=== PATIENT | male | born 1985 | race Two or more races ===

== ENCOUNTER 2022-11-11 16:54 | Inpatient (IN) | payer OTHER ==
[2022-11-11 16:59] VITALS: BMI 42.5
[2022-11-11] MEDS ORDERED: LIDOCAINE HCL 2% (20ML MULTI-DOSE VIAL) ONE (17:57)
[2022-11-11 19:55] LABS: BASO % 0.3 % (0-2.0); EOS % 0.2 % (0-4.5); HEMATOCRIT 46.8 % (35.4-49); LYMPH % 8.6 % (8-40); MCH 27.9 pg (25.7-33.7); MCHC 32.2 g/dl (32.0-35.9); MEAN CELL VOLUME 86.8 fl (80-96); MEAN PLT VOLUME 8.3 fl (7.5-11.1); MONO % 6.4 % (3.8-10.2); NEUT % 84.5 % (42.8-82.8); PLATELET COUNT 407 10^3/uL (134-434); RBC 5.39 M/mm3 (4.00-5.60); RDW 13.8 % (11.9-15.9); WHITE BLOOD COUNT 18.5 K/mm3 (4.0-10.0)
[2022-11-11 20:24] LABS: CALCIUM 9.5 mg/dL (8.5-10.1)
[2022-11-11 20:25] LABS: ALBUMIN 3.9 g/dl (3.4-5.0); BLOOD UREA NITROGEN 16.1 mg/dL (7-18)
[2022-11-11 20:28] LABS: CREATININE 0.9 mg/dL (0.55-1.3)
[2022-11-11 20:29] LABS: BILIRUBIN,TOTAL 0.3 mg/dL (0.2-1); TOT PROT 7.3 g/dl (6.4-8.2)
[2022-11-12] MEDS ORDERED: ACETAMINOPHEN 325 MG TABLET (FP) PO PRN ×2 (01:30→23:00)
[2022-11-12 09:29] LABS: HEMOGLOBIN 14.5 GM/dL (11.7-16.9); MCH 28.6 pg (25.7-33.7); MCHC 32.8 g/dl (32.0-35.9); MEAN CELL VOLUME 87.1 fl (80-96); MEAN PLT VOLUME 8.8 fl (7.5-11.1); PLATELET COUNT 348 10^3/uL (134-434); RBC 5.05 M/mm3 (4.00-5.60); RDW 13.7 % (11.9-15.9); WHITE BLOOD COUNT 11.1 K/mm3 (4.0-10.0)
[2022-11-12] MEDS ORDERED: ENOXAPARIN NA (PORCINE) 40 MG/0.4 ML DISP.SYRIN SQ SCH (10:00)
[2022-11-12 10:10] LABS: CALCIUM 9.1 mg/dL (8.5-10.1)
[2022-11-12 10:11] LABS: ALBUMIN 3.7 g/dl (3.4-5.0); MAGNESIUM 2.3 mg/dL (1.8-2.4)
[2022-11-12 10:12] LABS: BLOOD UREA NITROGEN 12.6 mg/dL (7-18)
[2022-11-12 10:14] LABS: CREATININE 0.9 mg/dL (0.55-1.3); PHOSPHOROUS 3.1 mg/dL (2.5-4.9)
[2022-11-12 10:14] LABS: PH,URINE 7.5 (5.0-8.0); URINE APPEARANCE CLOUDY; URINE BILIRUBIN NEGATIVE (NEGATIVE); URINE COLOR YELLOW; URINE GLUCOSE (UA) NEGATIVE (NEGATIVE); URINE KETONE NEGATIVE (NEGATIVE); URINE LEUK ESTERASE NEGATIVE (NEGATIVE); URINE NITRITE NEGATIVE (NEGATIVE); URINE PROTEIN NEGATIVE (NEGATIVE); URINE UROBILINOGEN 0.2 mg/dL (0.2-1.0)
[2022-11-12 10:15] LABS: BILIRUBIN,TOTAL 0.9 mg/dL (0.2-1)
[2022-11-12] MEDS ORDERED: oxyCODONE HCL 5 MG TABLET PO PRN (23:00)
[2022-11-13 10:30] LABS: INR 1.15 (0.83-1.09); PROTHROMBIN TIME (PATIENT) 13.3 SEC (9.7-13.0)
[2022-11-13 10:36] LABS: BASO % 0.7 % (0-2.0); EOS % 0.4 % (0-4.5); HEMATOCRIT 46.5 % (35.4-49); HEMOGLOBIN 15.2 GM/dL (11.7-16.9); LYMPH % 18.9 % (8-40); MCHC 32.8 g/dl (32.0-35.9); MEAN CELL VOLUME 88.4 fl (80-96); MEAN PLT VOLUME 8.9 fl (7.5-11.1); MONO % 11.7 % (3.8-10.2); NEUT % 68.3 % (42.8-82.8); PLATELET COUNT 365 10^3/uL (134-434); RBC 5.26 M/mm3 (4.00-5.60); RDW 13.4 % (11.9-15.9); WHITE BLOOD COUNT 12.8 K/mm3 (4.0-10.0)
[2022-11-13 10:54] LABS: CALCIUM 9.3 mg/dL (8.5-10.1)
[2022-11-13 10:55] LABS: ALBUMIN 3.8 g/dl (3.4-5.0); BLOOD UREA NITROGEN 12.8 mg/dL (7-18)
[2022-11-13 10:58] LABS: CREATININE 0.9 mg/dL (0.55-1.3)
[2022-11-13 10:59] LABS: TOT PROT 7.6 g/dl (6.4-8.2)
[2022-11-13 11:00] LABS: BILIRUBIN,TOTAL 0.8 mg/dL (0.2-1)
[2022-11-14] MEDS ORDERED: LACTATED RINGERS SOLUTION 1,000 ML/1,000 ML INFUS.BAG IV SCH
[2022-11-14 11:31] LABS: BASO % 0.7 % (0-2.0); EOS % 0.8 % (0-4.5); HEMOGLOBIN 14.6 GM/dL (11.7-16.9); LYMPH % 19.1 % (8-40); MCH 29.2 pg (25.7-33.7); MEAN CELL VOLUME 88.3 fl (80-96); MEAN PLT VOLUME 8.9 fl (7.5-11.1); MONO % 10.5 % (3.8-10.2); NEUT % 68.9 % (42.8-82.8); PLATELET COUNT 372 10^3/uL (134-434); RBC 4.99 M/mm3 (4.00-5.60); RDW 13.8 % (11.9-15.9); WHITE BLOOD COUNT 10.2 K/mm3 (4.0-10.0)
[2022-11-14 11:32] LABS: INR 1.34 (0.83-1.09); PROTHROMBIN TIME (PATIENT) 15.4 SEC (9.7-13.0)
[2022-11-14 11:51] LABS: ALBUMIN 3.4 g/dl (3.4-5.0)
[2022-11-14 11:52] LABS: BLOOD UREA NITROGEN 13.9 mg/dL (7-18); CALCIUM 9.2 mg/dL (8.5-10.1)
[2022-11-14 11:55] LABS: CREATININE 0.9 mg/dL (0.55-1.3)
[2022-11-14 11:56] LABS: TOT PROT 7.1 g/dl (6.4-8.2)
[2022-11-14 11:57] LABS: BILIRUBIN,TOTAL 0.6 mg/dL (0.2-1)
[2022-11-14] MEDS ORDERED: BUPIVACAINE HCL/PF 0.5% (5MG/ML) 10 ML VIAL ONE (12:33)
[2022-11-14] MEDS ORDERED: DEXAMETHASONE SOD PHOSPHATE 10 MG/1 ML VIAL ONE (12:33)
[2022-11-14] MEDS ORDERED: MIDAZOLAM HCL 2 MG/2 ML SINGLE DOSE VIAL ONE (12:34)
[2022-11-14] MEDS ORDERED: PROPOFOL 20 ML ONE (13:09)
[2022-11-14] MEDS ORDERED: ceFAZolin SODIUM 1 GM VIAL IVPB ONE (13:30)
[2022-11-14] MEDS ORDERED: ACETAMINOPHEN INJECTION 100 ML IVPB ONE (15:44)
[2022-11-14] MEDS ORDERED: ONDANSETRON 4 MG/2 ML VIAL IVPUSH PRN (15:55)
[2022-11-14] MEDS ORDERED: LACTATED RINGERS SOLUTION 1,000 ML IV SCH (16:00)
[2022-11-14] MEDS ORDERED: oxyCODONE HCL 5 MG TABLET PO PRN ×2 (16:03)
[2022-11-14] MEDS ORDERED: DOCUSATE SODIUM 100 MG CAPSULE (FP) PO PRN (16:03)
[2022-11-14 18:04] VITALS: RESP 20
[2022-11-14] MEDS: CEFAZOLIN SODIUM 2 GM in DEXTROSE 5%-WATER 100 ML IVPB SCH (22:20)
[2022-11-14] MEDS: ACETAMINOPHEN 500 MG TABLET (FP) PO SCH ×2 (22:20→22:27)
[2022-11-15] MEDS ORDERED: KETOROLAC TROMETHAMINE 30 MG/1 ML VIAL IVPUSH PRN (02:00)
[2022-11-15] MEDS: CEFAZOLIN SODIUM 2 GM in DEXTROSE 5%-WATER 100 ML IVPB SCH ×2 (02:00→10:27)
[2022-11-15] MEDS: ACETAMINOPHEN 500 MG TABLET (FP) PO SCH ×2 (04:32→10:27)
[2022-11-15 09:50] LABS: INR 1.21 (0.83-1.09); PROTHROMBIN TIME (PATIENT) 13.9 SEC (9.7-13.0)
[2022-11-15 09:56] LABS: BASO % 0.2 % (0-2.0); HEMATOCRIT 41.4 % (35.4-49); HEMOGLOBIN 13.8 GM/dL (11.7-16.9); LYMPH % 12.6 % (8-40); MCH 28.9 pg (25.7-33.7); MCHC 33.3 g/dl (32.0-35.9); MEAN CELL VOLUME 86.9 fl (80-96); MEAN PLT VOLUME 8.7 fl (7.5-11.1); MONO % 8.7 % (3.8-10.2); NEUT % 78.5 % (42.8-82.8); PLATELET COUNT 434 10^3/uL (134-434); RBC 4.77 M/mm3 (4.00-5.60); RDW 13.8 % (11.9-15.9); WHITE BLOOD COUNT 15.5 K/mm3 (4.0-10.0)
[2022-11-15] MEDS ORDERED: ASPIRIN 325 MG ENTERIC COATED TABLET (FP) PO SCH (10:00)
[2022-11-15 11:00] LABS: ALBUMIN 3.4 g/dl (3.4-5.0); BLOOD UREA NITROGEN 14.4 mg/dL (7-18)
[2022-11-15 11:05] LABS: BILIRUBIN,TOTAL 0.8 mg/dL (0.2-1); TOT PROT 6.9 g/dl (6.4-8.2)
[2022-11-15 14:53] VITALS: BP 151/86; PULSE 96; TEMP 98.3
== END 2022-11-15 15:17 | disposition home or self-care (01) | DRG 313 ==
LOC: JERFT 16:54 → JERBED 19:57 → J8W 20:59
PROVIDERS: ADMIT Internal Medicine; ATTEND Nurse Practitioner Acute Care
PROC: 0SQG0ZZ Repair Left Ankle Joint, Open Approach (ICD-10-PCS; 2022-11-14)
PROC: 0SSG04Z Reposition Left Ankle Joint with Internal Fixation Device, Open Approach (ICD-10-PCS; principal; 2022-11-14 14:00)
DX: S82.65XA Nondisplaced fracture of lateral malleolus of left fibula, initial encounter for closed fracture (principal); Z68.41 Body mass index [BMI] 40.0-44.9, adult; E66.01 Morbid (severe) obesity due to excess calories; D72.829 Elevated white blood cell count, unspecified; W19.XXXA Unspecified fall, initial encounter; Y93.9 Activity, unspecified; Y92.89 Other specified places as the place of occurrence of the external cause; Y99.8 Other external cause status
CPT/HCPCS: 0241U-QW; 36415; 71045-TC-FY; 73560-TC-LT-FY; 73610-TC-LT-FY; 76000-TC-FY; 80053; 81003; 83735; 84100; 85025; 85027; 85610; 86850; 86900; 86901; 87086; 93005; 93010; 94760; 97116-GP; 97161-GP; 99285-25; C1713; J1100